=== PATIENT | female | born 1955 | race Caucasian/White ===

== ENCOUNTER 2019-07-22 20:30 | Inpatient (IN) ==
[2019-07-22 21:55] LABS: ABS Basophils 0.1 10^3/ul (0-0.2); ABS Lymphocytes 0.4 10^3/ul (1.0-4.8); ABS Monocytes 0.6 10^3/ul (0-0.8); ABS Neutrophils 10.6 10^3/ul (1.5-7.7); Hematocrit 34 % (35-47); Hemoglobin 10.9 g/dL (12.0-16.0); Lymphocyte % 3.3 %; Mean Corpuscular HGB Conc 32 g/dL (31-36); Mean Corpuscular Hemoglobin 32 pg (27-31); Mean Corpuscular Volume 100 fL (80-97); Mean Platelet Volume 9.4 fL (7.4-10.4); Nucleated Red Blood Cells % 0.1; Platelet Count 165 10^3/uL (150-450); Red Blood Count 3.37 10^6 /uL (3.70-4.87); Red Cell Distribution Width 15 % (10-15); White Blood Count 11.7 10^3/uL (3.5-10.8)
[2019-07-22 21:59] LABS: INR 1.25 (0.82-1.09)
[2019-07-22 22:10] LABS: ALT 19 U/L (7-52); Albumin 3.5 g/dL (3.2-5.2); Albumin/Globulin Ratio 1.3 (1-3); Alkaline Phosphatase 142 U/L (34-104); BUN/Creatinine Ratio 10.4 (8-20); Blood Urea Nitrogen 28 mg/dL (6-24); CO2 Carbon Dioxide 23 mmol/L (22-32); Calcium 8.9 mg/dL (8.6-10.3); Chloride 92 mmol/L (101-111); EGFR African American 21.6 (>60); EGFR Non-African American 17.9 (>60); Globulin 2.8 g/dL (2-4); Glucose 125 mg/dL (70-100); Sodium 141 mmol/L (135-145); Total Protein 6.3 g/dL (6.4-8.9)
[2019-07-22 22:15] LABS: Troponin I 0.07 ng/mL (<0.03)
[2019-07-22] MEDS ORDERED: Iodixanol (CONTRAST) 320 MG/ML 100 ML SDV IV ONE (22:25)
[2019-07-22 22:26] LABS: Anion Gap 26 mmol/L (2-11)
[2019-07-23 00:11] LABS: Troponin I 0.07 ng/mL (<0.03)
[2019-07-23] MEDS ORDERED: Vancomycin 1,000 MG in NS 0.9% 250 ml 250 ML IVPB ONE (01:18)
[2019-07-23] MEDS ORDERED: Vancomycin 1,250 MG in NS 0.9% 250 ml 250 ML IVPB ONE (01:45)
[2019-07-23] MEDS ORDERED: Vancomycin per Pharmacy 1 EA NOTE FOLLOW UP SCH (02:00)
[2019-07-23] MEDS ORDERED: Cefepime ADVAN 1 GM in NS 0.9% 50 ML 50 ML IVPB SCH (02:30)
[2019-07-23 02:55] LABS: Potassium Redraw 3.4 mmol/L (3.5-5.0)
[2019-07-23 03:00] LABS: AST 15 U/L (13-39); C Reactive Protein 175.59 mg/L (<8.01)
[2019-07-23] MEDS ORDERED: metroNIDAZOLE IV 500 MG/100ML 500 MG/100 ML BAG IVPB SCH (03:00)
[2019-07-23] MEDS: Cefepime 1 GM in Dextrose 1 GM/50 ML BAG IV SCH ×2 (03:11→21:21)
[2019-07-23 03:23] LABS: Troponin I 0.07 ng/mL (<0.03)
[2019-07-23 07:45] LABS: ABS Lymphocytes 0.7 10^3/ul (1.0-4.8); ABS Monocytes 0.9 10^3/ul (0-0.8); ABS Neutrophils 8.5 10^3/ul (1.5-7.7); Eosinophil % 0.3 %; Hematocrit 30 % (35-47); Hemoglobin 10.1 g/dL (12.0-16.0); Lymphocyte % 6.8 %; Mean Corpuscular HGB Conc 33 g/dL (31-36); Mean Corpuscular Hemoglobin 33 pg (27-31); Mean Corpuscular Volume 100 fL (80-97); Nucleated Red Blood Cells % 0.1; Platelet Count 158 10^3/uL (150-450); Red Blood Count 3.03 10^6 /uL (3.70-4.87); Red Cell Distribution Width 16 % (10-15); White Blood Count 10.1 10^3/uL (3.5-10.8)
[2019-07-23 07:59] LABS: BUN/Creatinine Ratio 11.3 (8-20); Calcium 8.3 mg/dL (8.6-10.3); EGFR African American 19.1 (>60); EGFR Non-African American 15.8 (>60)
[2019-07-23 08:16] LABS: Potassium 3.5 mmol/L (3.5-5.0)
[2019-07-23] MEDS ORDERED: Sodium Thiosulfate 25 GM in 200 ML IV ONE (10:00)
[2019-07-23] MEDS: Heparin *DIALYSIS* ONLY 1,000 UNITS/ML VIAL DIALYSIS ONE ×3 (15:58→18:28)
[2019-07-23] MEDS ORDERED: Vancomycin - DIALYSIS DOSING 1 EA NOTE FOLLOW UP SCH (17:00)
[2019-07-23] MEDS ORDERED: Vancomycin 750 MG in NS 0.9% 250 ml 250 ML IVPB ONE (18:00)
[2019-07-24] MEDS ORDERED: Vancomycin Random Level NOTE FOLLOW UP ONE (06:00)
[2019-07-24 06:37] LABS: ABS Basophils 0.1 10^3/ul (0-0.2); ABS Lymphocytes 0.6 10^3/ul (1.0-4.8); ABS Monocytes 0.7 10^3/ul (0-0.8); Eosinophil % 0.4 %; Hematocrit 30 % (35-47); Hemoglobin 10.2 g/dL (12.0-16.0); Lymphocyte % 7.7 %; Mean Corpuscular HGB Conc 34 g/dL (31-36); Mean Corpuscular Hemoglobin 33 pg (27-31); Mean Corpuscular Volume 99 fL (80-97); Mean Platelet Volume 8.4 fL (7.4-10.4); Platelet Count 147 10^3/uL (150-450); Red Blood Count 3.05 10^6 /uL (3.70-4.87); Red Cell Distribution Width 15 % (10-15); White Blood Count 8.4 10^3/uL (3.5-10.8)
[2019-07-24 06:56] LABS: BUN/Creatinine Ratio 8.4 (8-20); C Reactive Protein 159.05 mg/L (<8.01); Calcium 8.7 mg/dL (8.6-10.3); EGFR African American 26.5 (>60); EGFR Non-African American 21.9 (>60); Potassium 3.1 mmol/L (3.5-5.0)
[2019-07-24] MEDS ORDERED: Potassium Chlor 20 meq TAB.ER PO ONE (08:28)
[2019-07-24] MEDS ORDERED: fentaNYL 100 mcg/2 ml 50 MCG/ML VIAL ONE (15:25)
[2019-07-24 16:41] LABS: Body Fluid Source Pleural Fluid
[2019-07-24 17:48] LABS: Body Fluid Mono 47 %
[2019-07-24] MEDS: Cefepime 1 GM in Dextrose 1 GM/50 ML BAG IV SCH (21:48)
[2019-07-25] MEDS ORDERED: Vancomycin Random Level NOTE FOLLOW UP ONE (06:00)
[2019-07-25 06:04] LABS: ABS Eosinophils 0.1 10^3/ul (0-0.6); ABS Lymphocytes 0.7 10^3/ul (1.0-4.8); ABS Monocytes 0.6 10^3/ul (0-0.8); ABS Neutrophils 7.8 10^3/ul (1.5-7.7); Eosinophil % 0.6 %; Hematocrit 30 % (35-47); Hemoglobin 9.9 g/dL (12.0-16.0); Lymphocyte % 7.2 %; Mean Corpuscular HGB Conc 33 g/dL (31-36); Mean Corpuscular Hemoglobin 33 pg (27-31); Mean Corpuscular Volume 100 fL (80-97); Mean Platelet Volume 8.3 fL (7.4-10.4); Platelet Count 154 10^3/uL (150-450); Red Blood Count 3.04 10^6 /uL (3.70-4.87); Red Cell Distribution Width 15 % (10-15); White Blood Count 9.1 10^3/uL (3.5-10.8)
[2019-07-25 06:18] LABS: BUN/Creatinine Ratio 8.5 (8-20); Calcium 8.7 mg/dL (8.6-10.3); EGFR African American 16.4 (>60); EGFR Non-African American 13.5 (>60); Potassium 3.6 mmol/L (3.5-5.0)
[2019-07-25 06:35] LABS: Vancomycin Random 16.2 mcg/mL
[2019-07-25] MEDS ORDERED: Sodium Thiosulfate 25 GM in 200 ML IV ONE (08:00)
[2019-07-25] MEDS ORDERED: Lidocaine 1% MPF 5 ML VIAL INJ ONE (10:00)
[2019-07-25] MEDS: Heparin *DIALYSIS* ONLY 1,000 UNITS/ML VIAL DIALYSIS ONE ×3 (11:15→14:43)
[2019-07-25] MEDS ORDERED: Buffered Lidocaine 1% SYRIN 1 ml INTRADERM ONE (16:06)
[2019-07-25] MEDS ORDERED: Vancomycin 750 MG in NS 0.9% 250 ml 250 ML IVPB ONE (17:00)
[2019-07-25] MEDS ORDERED: Albuterol/Ipratropium NEB.SOL (2.5/0.5 MG) 3 ML NEB.SOLN ONE (19:56)
[2019-07-25] MEDS ORDERED: Albuterol 2.5mg/3 ml (0.083%) NEB.SOLN INH ONE (19:57)
[2019-07-25] MEDS: Cefepime 1 GM in Dextrose 1 GM/50 ML BAG IV SCH (21:27)
[2019-07-26 05:35] LABS: ABS Basophils 0.1 10^3/ul (0-0.2); ABS Eosinophils 0.1 10^3/ul (0-0.6); ABS Lymphocytes 0.6 10^3/ul (1.0-4.8); ABS Monocytes 0.7 10^3/ul (0-0.8); ABS Neutrophils 7.6 10^3/ul (1.5-7.7); Eosinophil % 0.6 %; Hematocrit 30 % (35-47); Hemoglobin 9.9 g/dL (12.0-16.0); Lymphocyte % 6.9 %; Mean Corpuscular HGB Conc 33 g/dL (31-36); Mean Corpuscular Hemoglobin 33 pg (27-31); Mean Corpuscular Volume 99 fL (80-97); Mean Platelet Volume 8.6 fL (7.4-10.4); Nucleated Red Blood Cells % 0.1; Platelet Count 167 10^3/uL (150-450); Red Blood Count 3.04 10^6 /uL (3.70-4.87); Red Cell Distribution Width 15 % (10-15)
[2019-07-26 05:44] LABS: BUN/Creatinine Ratio 8.4 (8-20); Calcium 8.8 mg/dL (8.6-10.3); EGFR African American 22.3 (>60); EGFR Non-African American 18.4 (>60); Potassium 3.7 mmol/L (3.5-5.0)
[2019-07-26] MEDS ORDERED: Lactated Ringers 1000 ml BAG 1,000 ML IV SCH (06:00)
[2019-07-26] MEDS ORDERED: Remifentanil 2 MG VIAL ONE (07:53)
[2019-07-26] MEDS ORDERED: Ketamine HCL 50 mg/ml 10 ml VIAL (500 MG) ONE (07:58)
[2019-07-26] MEDS ORDERED: Propofol 10 mg/ml 100 ML BTL 200 ML ONE (07:58)
[2019-07-26] MEDS ORDERED: Lidocaine 2% PF 5 ML VIAL ONE (08:02)
[2019-07-26] MEDS ORDERED: Midazolam 2 mg/2 ml VIAL 1 mg/ml 2 ml VIAL (2 mg) ONE (08:02)
[2019-07-26] MEDS ORDERED: Etomidate 20 mg/10 ml 2 MG/ML 10 ml VIAL ONE (08:18)
[2019-07-26] MEDS ORDERED: Rocuronium 50 mg VIAL 10 mg/ml 5 ml VIAL (50 mg) ONE (08:18)
[2019-07-26] MEDS ORDERED: Lidocaine 1% VIAL 10 MG/ML VIAL ONE (08:31)
[2019-07-26] MEDS ORDERED: Bupivacaine 0.5% SDV PF 30ML VIAL ONE (08:32)
[2019-07-26] MEDS ORDERED: ceFAZolin 2 GM PREMIX 2 GM/50 ML BAG ONE (08:49)
[2019-07-26] MEDS: Albuterol/Ipratropium NEB.SOL (2.5/0.5 MG) 3 ML NEB.SOLN INH ONE ×2 (09:03→11:41)
[2019-07-26] MEDS ORDERED: fentaNYL 100 mcg/2 ml 50 MCG/ML VIAL ONE (11:00)
[2019-07-26] MEDS ORDERED: Ondansetron 4 mg VIAL 2 MG/ML 2 ml VIAL ONE (11:01)
[2019-07-26] MEDS ORDERED: Acetaminophen IV 1 GM/100ML 100 ML ONE (11:01)
[2019-07-26] MEDS ORDERED: Naloxone 0.4 mg VIAL 0.4 mg/ml 1 ml VIAL IV PRN (11:25)
[2019-07-26] MEDS ORDERED: fentaNYL 100 mcg/2 ml 50 MCG/ML VIAL IV PRN (11:25)
[2019-07-26 14:50] LABS: Hematocrit 31 % (35-47); Hemoglobin 9.6 g/dL (12.0-16.0); Mean Corpuscular HGB Conc 31 g/dL (31-36); Mean Corpuscular Hemoglobin 32 pg (27-31); Mean Corpuscular Volume 102 fL (80-97); Mean Platelet Volume 8.7 fL (7.4-10.4); Platelet Count 237 10^3/uL (150-450); Red Blood Count 3.01 10^6 /uL (3.70-4.87); Red Cell Distribution Width 16 % (10-15)
[2019-07-26 15:08] LABS: ALT 12 U/L (7-52); AST 15 U/L (13-39); Albumin/Globulin Ratio 1.1 (1-3); Alkaline Phosphatase 103 U/L (34-104); Anion Gap 23 mmol/L (2-11); BUN/Creatinine Ratio 8.2 (8-20); Blood Urea Nitrogen 24 mg/dL (6-24); CO2 Carbon Dioxide 17 mmol/L (22-32); Calcium 8.6 mg/dL (8.6-10.3); Chloride 97 mmol/L (101-111); EGFR African American 19.7 (>60); EGFR Non-African American 16.3 (>60); Globulin 2.8 g/dL (2-4); Glucose 224 mg/dL (70-100); Magnesium 1.6 mg/dL (1.9-2.7); Phosphorus 3.2 mg/dL (2.5-5.0); Potassium 3.8 mmol/L (3.5-5.0); Sodium 137 mmol/L (135-145); Total Protein 5.8 g/dL (6.4-8.9)
[2019-07-26 15:12] LABS: Troponin I 0.04 ng/mL (<0.03)
[2019-07-26 15:43] LABS: Fluid Type, Glucose PLEURAL; Glucose, BF 118 mg/dL
[2019-07-26 15:46] LABS: Fluid Type, Protein, Total PLEURAL
[2019-07-26] MEDS: Cefepime 1 GM in Dextrose 1 GM/50 ML BAG IV SCH (21:46)
[2019-07-27] MEDS: oxyCODONE/Acetamin 5/325 mg TAB PO PRN ×3 (01:00→13:51)
[2019-07-27] MEDS ORDERED: Magnesium Sulfate 2 gm BAG 2 GM/50 ML BAG IVPB ONE (10:07)
[2019-07-27] MEDS ORDERED: Calcium Gluconate 2 GM in NS 0.9% 100 ml BAG 100 ML IV ONE (10:07)
[2019-07-27] MEDS ORDERED: Alteplase (CATHFLO) 2 MG VIAL IV ONE (11:39)
[2019-07-27] MEDS ORDERED: Heparin 5000 UNITS/ML 1 mL VIAL SUBCUT SCH (21:00)
[2019-07-27] MEDS: Senna TAB 8.6 mg TAB PO SCH (22:42)
[2019-07-27] MEDS: Ondansetron 4 mg VIAL 2 MG/ML 2 ml VIAL IV PRN (22:47)
[2019-07-27] MEDS: Cefepime 1 GM in Dextrose 1 GM/50 ML BAG IV SCH (22:52)
[2019-07-28] MEDS ORDERED: Vancomycin Random Level NOTE FOLLOW UP ONE (06:00)
[2019-07-28] MEDS: oxyCODONE/Acetamin 5/325 mg TAB PO PRN (10:02)
[2019-07-28 11:52] LABS: Fluid Type: PLEURAL; Triglycerides (BF) 27 mg/dL
[2019-07-28 13:50] LABS: Lactate Dehydrogenase, BF 68 U/L
[2019-07-28 15:42] LABS: Hematocrit 22 % (35-47); Hemoglobin 7.2 g/dL (12.0-16.0); Mean Corpuscular HGB Conc 33 g/dL (31-36); Mean Corpuscular Hemoglobin 33 pg (27-31); Mean Corpuscular Volume 102 fL (80-97); Platelet Count 153 10^3/uL (150-450); Red Blood Count 2.19 10^6 /uL (3.70-4.87); Red Cell Distribution Width 16 % (10-15); White Blood Count 9.3 10^3/uL (3.5-10.8)
[2019-07-28 16:33] LABS: ALT < 3 U/L (7-52); AST 11 U/L (13-39); Albumin 2.7 g/dL (3.2-5.2); Alkaline Phosphatase 90 U/L (34-104); Anion Gap 22 mmol/L (2-11); BUN/Creatinine Ratio 8.5 (8-20); Blood Urea Nitrogen 39 mg/dL (6-24); C Reactive Protein 130.13 mg/L (<8.01); CO2 Carbon Dioxide 18 mmol/L (22-32); Calcium 9.3 mg/dL (8.6-10.3); Chloride 98 mmol/L (101-111); EGFR African American 11.7 (>60); EGFR Non-African American 9.7 (>60); Globulin 2.7 g/dL (2-4); Glucose 78 mg/dL (70-100); Magnesium 2.2 mg/dL (1.9-2.7); Phosphorus 4.7 mg/dL (2.5-5.0); Potassium 4.7 mmol/L (3.5-5.0); Sodium 138 mmol/L (135-145); Total Protein 5.4 g/dL (6.4-8.9)
[2019-07-28 16:48] LABS: Vancomycin Random 15.9 mcg/mL
[2019-07-28] MEDS ORDERED: Clindamycin 600 MG/D5W BAG 600 MG/50 ML BAG IV ONE (17:00)
[2019-07-28 20:40] LABS: Hepatitis B Surface Antigen Nonreactive (Nonreactive)
[2019-07-28] MEDS ORDERED: Heparin 5000 UNITS/ML 1 mL VIAL SUBCUT SCH (21:00)
[2019-07-28] MEDS ORDERED: Enoxaparin 30 MG/0.3 ML SYR SUBCUT SCH (21:00)
[2019-07-28] MEDS: Cefepime 1 GM in Dextrose 1 GM/50 ML BAG IV SCH (21:56)
[2019-07-28] MEDS: Senna TAB 8.6 mg TAB PO SCH (21:57)
[2019-07-28] MEDS ORDERED: Heparin 5000 UNITS/ML 1 mL VIAL SUBCUT ONE (22:00)
[2019-07-28 22:02] LABS: Hematocrit 26 % (35-47); Hemoglobin 8.6 g/dL (12.0-16.0)
[2019-07-29 06:12] LABS: Hematocrit 26 % (35-47); Hemoglobin 8.5 g/dL (12.0-16.0); Mean Corpuscular HGB Conc 33 g/dL (31-36); Mean Corpuscular Hemoglobin 33 pg (27-31); Mean Corpuscular Volume 102 fL (80-97); Mean Platelet Volume 9.6 fL (7.4-10.4); Platelet Count 190 10^3/uL (150-450); Red Blood Count 2.56 10^6 /uL (3.70-4.87); Red Cell Distribution Width 16 % (10-15); White Blood Count 10.3 10^3/uL (3.5-10.8)
[2019-07-29 06:29] LABS: BUN/Creatinine Ratio 8.5 (8-20); Calcium 9.1 mg/dL (8.6-10.3); EGFR African American 10.7 (>60); EGFR Non-African American 8.8 (>60); Potassium 4.8 mmol/L (3.5-5.0)
[2019-07-29] MEDS ORDERED: Albumin Human 25% 12.5 GM/50 ML BTL IV PRN (09:45)
[2019-07-29] MEDS ORDERED: Heparin 2 UNITS/ML 1000 mls 1,000 ML IV ONE (11:49)
[2019-07-29] MEDS ORDERED: Lidocaine 1% VIAL 10 MG/ML VIAL ONE (11:49)
[2019-07-29] MEDS ORDERED: Vancomycin 750 MG in NS 0.9% 250 ml 250 ML IVPB ONE (12:00)
[2019-07-29] MEDS ORDERED: Midazolam 5 mg/5 ml VIAL 1 mg/ml 5 ml VIAL (5 mg) ONE (12:00)
[2019-07-29] MEDS ORDERED: fentaNYL 100 mcg/2 ml 50 MCG/ML VIAL ONE (12:00)
[2019-07-29] MEDS ORDERED: Heparin - STEMI 5,000 UNITS/ML 1 ml VIAL IV ONE (12:01)
[2019-07-29] MEDS: Ondansetron 4 mg VIAL 2 MG/ML 2 ml VIAL IV PRN (13:53)
[2019-07-29] MEDS ORDERED: Clindamycin 600 MG/D5W BAG 600 MG/50 ML BAG IV ONE (14:00)
[2019-07-29] MEDS ORDERED: Naloxone 0.4 mg VIAL 0.4 mg/ml 1 ml VIAL IV PUSH ONE (15:17)
[2019-07-29 16:59] LABS: Hematocrit 27 % (35-47); Hemoglobin 8.7 g/dL (12.0-16.0); Mean Corpuscular HGB Conc 32 g/dL (31-36); Mean Corpuscular Hemoglobin 32 pg (27-31); Mean Corpuscular Volume 100 fL (80-97); Platelet Count 225 10^3/uL (150-450); Red Blood Count 2.71 10^6 /uL (3.70-4.87); Red Cell Distribution Width 16 % (10-15)
[2019-07-29 17:16] LABS: BUN/Creatinine Ratio 8.3 (8-20); Calcium 8.9 mg/dL (8.6-10.3); EGFR Non-African American 13.2 (>60); Potassium 4.3 mmol/L (3.5-5.0)
[2019-07-29] MEDS: Senna TAB 8.6 mg TAB PO SCH (20:50)
[2019-07-30 05:47] LABS: Hematocrit 27 % (35-47); Hemoglobin 8.9 g/dL (12.0-16.0); Mean Corpuscular HGB Conc 33 g/dL (31-36); Mean Corpuscular Hemoglobin 33 pg (27-31); Mean Corpuscular Volume 100 fL (80-97); Platelet Count 233 10^3/uL (150-450); Red Blood Count 2.66 10^6 /uL (3.70-4.87); Red Cell Distribution Width 16 % (10-15); White Blood Count 12.6 10^3/uL (3.5-10.8)
[2019-07-30 05:59] LABS: BUN/Creatinine Ratio 7.5 (8-20); Calcium 8.9 mg/dL (8.6-10.3); EGFR African American 13.1 (>60); EGFR Non-African American 10.8 (>60); Potassium 4.6 mmol/L (3.5-5.0)
[2019-07-30] MEDS ORDERED: Vancomycin Random Level NOTE FOLLOW UP ONE (06:00)
[2019-07-30 06:36] LABS: C Reactive Protein 127.56 mg/L (<8.01)
[2019-07-30 06:53] LABS: Vancomycin Random 18.8 mcg/mL
[2019-07-30] MEDS ORDERED: Albumin Human 25% 12.5 GM/50 ML BTL IV PRN (07:45)
[2019-07-30] MEDS ORDERED: Sodium Thiosulfate 25 GM in 200 ML IV ONE (11:00)
[2019-07-30] MEDS: Heparin *DIALYSIS* ONLY 1,000 UNITS/ML VIAL DIALYSIS ONE ×2 (15:53→17:35)
[2019-07-30] MEDS ORDERED: Vancomycin 750 MG in NS 0.9% 250 ml 250 ML IVPB ONE (17:00)
[2019-07-30 20:47] LABS: ABS Basophils 0.1 10^3/ul (0-0.2); ABS Eosinophils 0.1 10^3/ul (0-0.6); ABS Lymphocytes 0.5 10^3/ul (1.0-4.8); ABS Monocytes 0.5 10^3/ul (0-0.8); ABS Neutrophils 10.4 10^3/ul (1.5-7.7); ABS Nucleated RBC 0.1 10^3/ul; Eosinophil % 0.5 %; Hematocrit 25 % (35-47); Hemoglobin 8.4 g/dL (12.0-16.0); Mean Corpuscular HGB Conc 34 g/dL (31-36); Mean Corpuscular Hemoglobin 33 pg (27-31); Mean Corpuscular Volume 100 fL (80-97); Mean Platelet Volume 8.5 fL (7.4-10.4); Nucleated Red Blood Cells % 0.4; Platelet Count 232 10^3/uL (150-450); Red Blood Count 2.53 10^6 /uL (3.70-4.87); Red Cell Distribution Width 16 % (10-15); White Blood Count 11.6 10^3/uL (3.5-10.8)
[2019-07-30 20:53] LABS: INR 1.38 (0.82-1.09)
[2019-07-30 21:03] LABS: ALT < 3 U/L (7-52); AST 13 U/L (13-39); Albumin 2.7 g/dL (3.2-5.2); Alkaline Phosphatase 99 U/L (34-104); Anion Gap 16 mmol/L (2-11); BUN/Creatinine Ratio 6.5 (8-20); Blood Urea Nitrogen 18 mg/dL (6-24); CO2 Carbon Dioxide 22 mmol/L (22-32); Calcium 8.3 mg/dL (8.6-10.3); Chloride 99 mmol/L (101-111); EGFR African American 20.8 (>60); EGFR Non-African American 17.2 (>60); Globulin 2.6 g/dL (2-4); Glucose 119 mg/dL (70-100); Potassium 3.7 mmol/L (3.5-5.0); Sodium 137 mmol/L (135-145); Total Protein 5.3 g/dL (6.4-8.9)
[2019-07-30 22:29] LABS: Troponin I 0.04 ng/mL (<0.03)
[2019-07-30] MEDS: Senna TAB 8.6 mg TAB PO SCH (22:52)
[2019-07-31] MEDS: Metoprolol Tartrate 5 mg VIAL 5 ml VIAL (1 mg/ml) IV SCH ×4 (00:12→17:53)
[2019-07-31 00:50] LABS: ABS Eosinophils 0.1 10^3/ul (0-0.6); ABS Lymphocytes 0.5 10^3/ul (1.0-4.8); ABS Monocytes 0.5 10^3/ul (0-0.8); ABS Neutrophils 10.1 10^3/ul (1.5-7.7); ABS Nucleated RBC 0.1 10^3/ul; Eosinophil % 0.5 %; Hematocrit 26 % (35-47); Hemoglobin 8.6 g/dL (12.0-16.0); Lymphocyte % 4.2 %; Mean Corpuscular HGB Conc 33 g/dL (31-36); Mean Corpuscular Hemoglobin 33 pg (27-31); Mean Corpuscular Volume 101 fL (80-97); Nucleated Red Blood Cells % 0.5; Platelet Count 249 10^3/uL (150-450); Red Blood Count 2.61 10^6 /uL (3.70-4.87); Red Cell Distribution Width 16 % (10-15); White Blood Count 11.2 10^3/uL (3.5-10.8)
[2019-07-31 06:50] LABS: ABS Eosinophils 0.1 10^3/ul (0-0.6); ABS Lymphocytes 0.6 10^3/ul (1.0-4.8); ABS Monocytes 0.6 10^3/ul (0-0.8); ABS Neutrophils 10.1 10^3/ul (1.5-7.7); ABS Nucleated RBC 0.1 10^3/ul; Eosinophil % 0.6 %; Hematocrit 26 % (35-47); Hemoglobin 8.6 g/dL (12.0-16.0); Lymphocyte % 5.3 %; Mean Corpuscular HGB Conc 33 g/dL (31-36); Mean Corpuscular Hemoglobin 34 pg (27-31); Mean Corpuscular Volume 101 fL (80-97); Mean Platelet Volume 9.1 fL (7.4-10.4); Nucleated Red Blood Cells % 0.5; Platelet Count 240 10^3/uL (150-450); Red Blood Count 2.55 10^6 /uL (3.70-4.87); Red Cell Distribution Width 16 % (10-15); White Blood Count 11.4 10^3/uL (3.5-10.8)
[2019-07-31 07:00] LABS: BUN/Creatinine Ratio 6.4 (8-20); Calcium 8.6 mg/dL (8.6-10.3); EGFR African American 18.2 (>60); EGFR Non-African American 15.1 (>60); Magnesium 1.8 mg/dL (1.9-2.7); Potassium 3.8 mmol/L (3.5-5.0)
[2019-07-31] MEDS: Pantoprazole VIAL 40 MG VIAL IV SCH ×2 (08:09→20:50)
[2019-07-31] MEDS: Senna TAB 8.6 mg TAB PO SCH (20:51)
[2019-08-01] MEDS: Metoprolol Tartrate 5 mg VIAL 5 ml VIAL (1 mg/ml) IV SCH ×4 (05:07→18:14)
[2019-08-01] MEDS: Heparin *DIALYSIS* ONLY 1,000 UNITS/ML VIAL DIALYSIS ONE ×4 (07:18→11:16)
[2019-08-01] MEDS: Pantoprazole VIAL 40 MG VIAL IV SCH ×2 (08:28→20:04)
[2019-08-01] MEDS ORDERED: Sodium Thiosulfate 25 GM in 200 ML IV ONE (10:00)
[2019-08-01 11:08] LABS: Hepatitis B Surface Ab Not Immune (Immune)
[2019-08-01] MEDS: oxyCODONE/Acetamin 5/325 mg TAB PO PRN (13:37)
[2019-08-01] MEDS ORDERED: Vancomycin 750 MG in NS 0.9% 250 ml 250 ML IVPB ONE (17:00)
[2019-08-01] MEDS: Senna TAB 8.6 mg TAB PO SCH (20:04)
[2019-08-01 23:56] LABS: Hematocrit 25 % (35-47); Hemoglobin 8.4 g/dL (12.0-16.0)
[2019-08-02] MEDS: Metoprolol Tartrate 5 mg VIAL 5 ml VIAL (1 mg/ml) IV SCH ×3 (00:14→12:30)
[2019-08-02 04:14] LABS: Hematocrit 25 % (35-47); Hemoglobin 8.4 g/dL (12.0-16.0)
[2019-08-02] MEDS: Ondansetron 4 mg VIAL 2 MG/ML 2 ml VIAL IV PRN (08:13)
[2019-08-02] MEDS: Pantoprazole VIAL 40 MG VIAL IV SCH ×2 (09:55→20:33)
[2019-08-02] MEDS: oxyCODONE/Acetamin 5/325 mg TAB PO PRN (13:09)
[2019-08-02 13:34] LABS: Hematocrit 26 % (35-47); Hemoglobin 8.4 g/dL (12.0-16.0)
[2019-08-02] MEDS: Senna TAB 8.6 mg TAB PO SCH (20:32)
[2019-08-03] MEDS ORDERED: Furosemide 100 mg/10 ml IV VIAL IV ONE (07:17)
[2019-08-03] MEDS: Pantoprazole VIAL 40 MG VIAL IV SCH ×2 (09:54→20:52)
[2019-08-03 12:25] LABS: ABS Basophils 0.1 10^3/ul (0-0.2); ABS Lymphocytes 0.6 10^3/ul (1.0-4.8); ABS Monocytes 0.5 10^3/ul (0-0.8); ABS Neutrophils 8.7 10^3/ul (1.5-7.7); ABS Nucleated RBC 0.1 10^3/ul; Eosinophil % 0.5 %; Hematocrit 26 % (35-47); Hemoglobin 8.3 g/dL (12.0-16.0); Lymphocyte % 6.3 %; Mean Corpuscular HGB Conc 32 g/dL (31-36); Mean Corpuscular Hemoglobin 33 pg (27-31); Mean Corpuscular Volume 103 fL (80-97); Mean Platelet Volume 8.7 fL (7.4-10.4); Nucleated Red Blood Cells % 0.6; Platelet Count 225 10^3/uL (150-450); Red Blood Count 2.49 10^6 /uL (3.70-4.87); Red Cell Distribution Width 16 % (10-15); White Blood Count 9.9 10^3/uL (3.5-10.8)
[2019-08-03 12:40] LABS: % Iron Saturation 33 % (15-55); Anion Gap 14 mmol/L (2-11); BUN/Creatinine Ratio 7.2 (8-20); Blood Urea Nitrogen 29 mg/dL (6-24); CO2 Carbon Dioxide 23 mmol/L (22-32); Calcium 8.9 mg/dL (8.6-10.3); Chloride 102 mmol/L (101-111); EGFR African American 13.7 (>60); EGFR Non-African American 11.3 (>60); Glucose 141 mg/dL (70-100); Iron 37 ug/dL (50-212); Potassium 4.4 mmol/L (3.5-5.0); Sodium 139 mmol/L (135-145); Total Iron Binding Capacity 111 mcg/dL (250-450); Transferrin 79 mg/dL (203-362); Unsaturated Iron Binding < 96 ug/dL
[2019-08-03 13:02] LABS: Ferritin > 1500.0 ng/mL (11-307)
[2019-08-03 13:05] LABS: Folate 12.93 ng/mL (>3.99)
[2019-08-03 13:06] LABS: Vitamin B12 1008 pg/mL (180-914)
[2019-08-03] MEDS: Senna TAB 8.6 mg TAB PO SCH (20:51)
[2019-08-03 21:37] LABS: Hematocrit 26 % (35-47); Hemoglobin 8.3 g/dL (12.0-16.0)
[2019-08-04 05:52] LABS: ABS Basophils 0.1 10^3/ul (0-0.2); ABS Eosinophils 0.1 10^3/ul (0-0.6); ABS Lymphocytes 0.7 10^3/ul (1.0-4.8); ABS Monocytes 0.5 10^3/ul (0-0.8); ABS Neutrophils 7.3 10^3/ul (1.5-7.7); ABS Nucleated RBC 0.1 10^3/ul; Eosinophil % 0.9 %; Hematocrit 25 % (35-47); Hemoglobin 8.4 g/dL (12.0-16.0); Lymphocyte % 8.3 %; Mean Corpuscular HGB Conc 33 g/dL (31-36); Mean Corpuscular Hemoglobin 34 pg (27-31); Mean Corpuscular Volume 102 fL (80-97); Mean Platelet Volume 8.5 fL (7.4-10.4); Nucleated Red Blood Cells % 0.9; Platelet Count 213 10^3/uL (150-450); Red Blood Count 2.46 10^6 /uL (3.70-4.87); Red Cell Distribution Width 16 % (10-15); White Blood Count 8.6 10^3/uL (3.5-10.8)
[2019-08-04] MEDS ORDERED: Vancomycin Random Level NOTE FOLLOW UP ONE (06:00)
[2019-08-04 06:15] LABS: BUN/Creatinine Ratio 7.3 (8-20); EGFR Non-African American 9.9 (>60); Potassium 4.5 mmol/L (3.5-5.0)
[2019-08-04] MEDS ORDERED: ALBUMIN HUMAN IV PRN (07:28)
[2019-08-04] MEDS: Heparin *DIALYSIS* ONLY 1,000 UNITS/ML VIAL DIALYSIS ONE ×3 (09:23→11:27)
[2019-08-04] MEDS ORDERED: Sodium Thiosulfate 25 GM in 200 ML IV ONE (11:00)
[2019-08-04] MEDS: Pantoprazole VIAL 40 MG VIAL IV SCH ×2 (14:44→21:43)
[2019-08-04] MEDS: oxyCODONE/Acetamin 5/325 mg TAB PO PRN (14:45)
[2019-08-04] MEDS: Ondansetron 4 mg VIAL 2 MG/ML 2 ml VIAL IV PRN ×2 (14:45→22:19)
[2019-08-04] MEDS ORDERED: Vancomycin 750 MG in NS 0.9% 250 ml 250 ML IVPB ONE (15:00)
[2019-08-04] MEDS: Senna TAB 8.6 mg TAB PO SCH (21:43)
[2019-08-05 01:12] LABS: ALT < 3 U/L (7-52); AST 11 U/L (13-39); Albumin/Globulin Ratio 1.1 (1-3); Alkaline Phosphatase 120 U/L (34-104); Amylase 22 U/L (29-103); Anion Gap 14 mmol/L (2-11); BUN/Creatinine Ratio 6.2 (8-20); Blood Urea Nitrogen 16 mg/dL (6-24); CO2 Carbon Dioxide 23 mmol/L (22-32); Calcium 8.5 mg/dL (8.6-10.3); Chloride 99 mmol/L (101-111); EGFR African American 22.7 (>60); EGFR Non-African American 18.7 (>60); Globulin 2.7 g/dL (2-4); Glucose 89 mg/dL (70-100); Lipase 18 U/L (11.0-82.0); Potassium 3.9 mmol/L (3.5-5.0); Sodium 136 mmol/L (135-145); Total Protein 5.7 g/dL (6.4-8.9)
[2019-08-05 05:24] LABS: ABS Lymphocytes 0.6 10^3/ul (1.0-4.8); ABS Monocytes 0.4 10^3/ul (0-0.8); ABS Neutrophils 7.8 10^3/ul (1.5-7.7); ABS Nucleated RBC 0.2 10^3/ul; Eosinophil % 0.5 %; Hematocrit 27 % (35-47); Hemoglobin 8.6 g/dL (12.0-16.0); Lymphocyte % 7.2 %; Mean Corpuscular HGB Conc 32 g/dL (31-36); Mean Corpuscular Hemoglobin 33 pg (27-31); Mean Corpuscular Volume 103 fL (80-97); Mean Platelet Volume 8.8 fL (7.4-10.4); Nucleated Red Blood Cells % 1.8; Platelet Count 220 10^3/uL (150-450); Red Blood Count 2.57 10^6 /uL (3.70-4.87); Red Cell Distribution Width 17 % (10-15); White Blood Count 8.9 10^3/uL (3.5-10.8)
[2019-08-05 05:45] LABS: BUN/Creatinine Ratio 6.4 (8-20); Calcium 8.5 mg/dL (8.6-10.3); EGFR African American 21.9 (>60); EGFR Non-African American 18.1 (>60); Potassium 3.7 mmol/L (3.5-5.0)
[2019-08-05] MEDS ORDERED: Albumin Human 25% 12.5 GM/50 ML BTL IV PRN (07:16)
[2019-08-05] MEDS: Pantoprazole VIAL 40 MG VIAL IV SCH ×2 (08:18→22:23)
[2019-08-05] MEDS: Heparin *DIALYSIS* ONLY 1,000 UNITS/ML VIAL DIALYSIS ONE ×4 (09:02→13:02)
[2019-08-05] MEDS ORDERED: fentaNYL 100 mcg/2 ml 50 MCG/ML VIAL ONE (15:57)
[2019-08-05] MEDS ORDERED: Midazolam 10 mg/10 ml VIAL 1 mg/ml 10 ml VIAL (10 mg) ONE (15:57)
[2019-08-05] MEDS: Senna TAB 8.6 mg TAB PO SCH (22:23)
[2019-08-05] MEDS: oxyCODONE/Acetamin 5/325 mg TAB PO PRN (22:31)
[2019-08-06 04:59] LABS: ABS Eosinophils 0.1 10^3/ul (0-0.6); ABS Lymphocytes 0.8 10^3/ul (1.0-4.8); ABS Monocytes 0.5 10^3/ul (0-0.8); ABS Neutrophils 7.6 10^3/ul (1.5-7.7); ABS Nucleated RBC 0.2 10^3/ul; Eosinophil % 0.9 %; Hematocrit 28 % (35-47); Hemoglobin 9.2 g/dL (12.0-16.0); Lymphocyte % 9.1 %; Mean Corpuscular HGB Conc 33 g/dL (31-36); Mean Corpuscular Hemoglobin 34 pg (27-31); Mean Corpuscular Volume 104 fL (80-97); Mean Platelet Volume 9.1 fL (7.4-10.4); Nucleated Red Blood Cells % 2.7; Platelet Count 250 10^3/uL (150-450); Red Blood Count 2.73 10^6 /uL (3.70-4.87); Red Cell Distribution Width 17 % (10-15); White Blood Count 9.1 10^3/uL (3.5-10.8)
[2019-08-06 05:15] LABS: EGFR African American 26.9 (>60); EGFR Non-African American 22.3 (>60)
[2019-08-06 05:21] LABS: Vancomycin Random 19.9 mcg/mL
[2019-08-06] MEDS ORDERED: Vancomycin Random Level NOTE FOLLOW UP ONE (06:00)
[2019-08-06] MEDS: Pantoprazole VIAL 40 MG VIAL IV SCH ×2 (08:10→20:54)
[2019-08-06] MEDS ORDERED: Magnesium Hydroxide LIQ 30 ML UDC PO PRN (13:42)
[2019-08-06] MEDS ORDERED: Vancomycin 750 MG in NS 0.9% 250 ml 250 ML IVPB ONE (17:00)
[2019-08-06] MEDS: Senna TAB 8.6 mg TAB PO SCH (20:53)
[2019-08-07 05:50] LABS: ABS Eosinophils 0.1 10^3/ul (0-0.6); ABS Lymphocytes 0.7 10^3/ul (1.0-4.8); ABS Monocytes 0.5 10^3/ul (0-0.8); ABS Neutrophils 7.5 10^3/ul (1.5-7.7); ABS Nucleated RBC 0.2 10^3/ul; Hematocrit 28 % (35-47); Hemoglobin 9.3 g/dL (12.0-16.0); Lymphocyte % 7.5 %; Mean Corpuscular HGB Conc 33 g/dL (31-36); Mean Corpuscular Hemoglobin 34 pg (27-31); Mean Corpuscular Volume 104 fL (80-97); Mean Platelet Volume 8.5 fL (7.4-10.4); Nucleated Red Blood Cells % 1.8; Platelet Count 226 10^3/uL (150-450); Red Blood Count 2.72 10^6 /uL (3.70-4.87); Red Cell Distribution Width 17 % (10-15); White Blood Count 8.8 10^3/uL (3.5-10.8)
[2019-08-07] MEDS: Pantoprazole VIAL 40 MG VIAL IV SCH ×2 (09:04→21:56)
[2019-08-07] MEDS: Polyethylene Glycol 3350 17 GM PACKET PO SCH (09:05)
[2019-08-07] MEDS: Senna TAB 8.6 mg TAB PO SCH (21:56)
[2019-08-08] MEDS: oxyCODONE/Acetamin 5/325 mg TAB PO PRN ×2 (02:05→10:07)
[2019-08-08] MEDS ORDERED: Vancomycin Trough Check NOTE FOLLOW UP ONE (06:00)
[2019-08-08] MEDS ORDERED: ALBUMIN HUMAN IV PRN (06:01)
[2019-08-08] MEDS: Heparin *DIALYSIS* ONLY 1,000 UNITS/ML VIAL DIALYSIS ONE ×4 (06:54→10:15)
[2019-08-08] MEDS: Ondansetron 4 mg VIAL 2 MG/ML 2 ml VIAL IV PRN (10:07)
[2019-08-08] MEDS: Pantoprazole VIAL 40 MG VIAL IV SCH (11:13)
[2019-08-08] MEDS: Polyethylene Glycol 3350 17 GM PACKET PO SCH (11:14)
[2019-08-08 11:28] VITALS: BP 126/47
[2019-08-08] MEDS ORDERED: Vancomycin 500 MG in NS 0.9% 250 ml 250 ML IVPB ONE (14:00)
== END 2019-08-08 16:50 | disposition home health service (06) | DRG 492 ==
LOC: ED 20:30 → MEDTELE 07-23 01:59 → ICU 07-26 13:25 → SSU 07-27 14:43 → ICU 07-30 22:09 → MEDTELE 08-01 09:48 → MED 08-05 19:34
PROVIDERS: ADMIT Nurse Practitioner; ATTEND Hospitalist